=== PATIENT | female | born 1970 | race African-American/Black ===

== ENCOUNTER 2020-03-10 18:59 | Emergency (ER) | payer BC ==
[2020-03-10 19:26] VITALS: BP 135/88; PULSE 86; TEMP 97.9; BMI 26.5
[2020-03-10] MEDS ORDERED: CEPHALEXIN MONOHYDRATE 500 MG CAPSULE (UD) PO ONE (20:11)
[2020-03-10] MEDS ORDERED: CEPHALEXIN MONOHYDRATE 500 MG CAPSULE (UD) ONE (20:21)
== END 2020-03-10 20:28 | disposition home or self-care (01) ==
LOC: FER 18:59
DX: S92.515A Nondisplaced fracture of proximal phalanx of left lesser toe(s), initial encounter for closed fracture (principal); S91.125A Laceration with foreign body of left lesser toe(s) without damage to nail, initial encounter; S93.402A Sprain of unspecified ligament of left ankle, initial encounter
CPT/HCPCS: 73610-TC-LT-FY; 73630-TC-LT; 99284-25